=== PATIENT | male | born 1955 | race Caucasian/White ===

== ENCOUNTER 2018-03-11 14:06 | Emergency (ER) | payer OTHER ==
[~2018-03-11] VITALS: Ht 185.4 cm; Wt 148.3 kg
[2018-03-11] MEDS ORDERED: SYNTHROID88 MCG PO (14:30)
[2018-03-11] MEDS ORDERED: ATORVASTATIN CA10 MG PO (14:31)
[2018-03-11] MEDS ORDERED: AVAPRO75 MG PO (14:31)
[2018-03-11] MEDS ORDERED: AMLODIPINE BES2.5 MG PO (14:31)
[2018-03-11] MEDS ORDERED: ASA81 MG PO (14:32)
[2018-03-11] MEDS ORDERED: CEFACLOR500 MG PO (20:01)
[2018-03-11] MEDS ORDERED: TAMS0.4C PO (20:01)
[2018-03-11] MEDS ORDERED: PERCOCET 5-3251 EACH PO (20:01)
[2018-03-11] MEDS ORDERED: TESSALON PERLE100 MG PO (20:12)
== END 2018-03-11 20:23 | disposition home or self-care (01) ==
LOC: ER 14:06 → EDBD 16:58 → ER 16:58
DX: N13.2 Hydronephrosis with renal and ureteral calculous obstruction (principal); R10.12 Left upper quadrant pain; R10.32 Left lower quadrant pain

== ENCOUNTER 2018-03-14 09:33 | Day surgery (SDC) | payer OTHER ==
[~2018-03-14] VITALS: Ht 185.4 cm; Wt 145.6 kg
[~2018-03-14 09:33] MED LIST: AMLODIPINE BES2.5 MG PO; ASA81 MG PO; ATORVASTATIN CA10 MG PO; AVAPRO75 MG PO; CEFACLOR500 MG PO; PERCOCET 5-3251 EACH PO; SYNTHROID88 MCG PO; TAMS0.4C PO; TESSALON PERLE100 MG PO
== END 2018-03-14 20:00 | disposition home or self-care (01) ==
LOC: ER 09:33 → CIR.AMB 14:43 → ER 14:43 → O/R 14:43 → SEC-K 14:43 → EDSTATUS 15:00 → O/R 17:40 → SEC-K 17:40 → EDBD 19:45 → O/R 19:45 → CIR.AMB 20:00
DX: N13.2 Hydronephrosis with renal and ureteral calculous obstruction (principal); I10 Essential (primary) hypertension; E03.8 Other specified hypothyroidism; E78.00 Pure hypercholesterolemia, unspecified; E66.01 Morbid (severe) obesity due to excess calories

== ENCOUNTER → 2018-03-21 07:46 | Outpatient (CLI) | payer OTHER | END | disposition home or self-care (01) | LOC: LAB 07:46 | DX: N20.0 Calculus of kidney (principal) ==

== ENCOUNTER 2018-03-21 16:00 | Inpatient (IN) | payer OTHER ==
[~2018-03-21] VITALS: Ht 185.4 cm; Wt 143.3 kg
== END 2018-03-25 10:22 | disposition home or self-care (01) | DRG 661 ==
LOC: SURG 03-23 06:13 → O/R 03-23 06:13 → SURH 03-23 10:30 → SURG 03-23 13:29 → CIR.AMB 03-23 15:08 → EDSTATUS 03-23 15:32 → SURH 03-23 15:33 → SURG 03-25 10:22
PROVIDERS: Urology
PROC: BT1FZZZ Fluoroscopy of Left Kidney, Ureter and Bladder (ICD-10-PCS; 2018-03-23)
PROC: 0TP98DZ Removal of Intraluminal Device from Ureter, Via Natural or Artificial Opening Endoscopic (ICD-10-PCS; 2018-03-23)
PROC: 0TC18ZZ Extirpation of Matter from Left Kidney, Via Natural or Artificial Opening Endoscopic (ICD-10-PCS; principal; 2018-03-23 10:30)
DX: N20.0 Calculus of kidney (principal); I10 Essential (primary) hypertension; E03.8 Other specified hypothyroidism

== ENCOUNTER 2018-03-31 10:51 | Outpatient (CLI) | payer OTHER | END 2018-03-31 11:05 | disposition home or self-care (01) | LOC: LAB 10:51 | DX: N20.0 Calculus of kidney (principal) ==